=== PATIENT | female | born 1990 | race Caucasian/White ===

== ENCOUNTER 2017-07-11 05:43 | Emergency (ER) | payer OTHER ==
[~2017-07-11] VITALS: Ht 160 cm; Wt 55.0 kg
[2017-07-11 05:53] VITALS: BP 133/85; PULSE 112; RESP 18; TEMP 98.7; O2SAT 96
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
[2017-07-11] MEDS ORDERED: TETANUS/DIPHTHERIA TOXOID ADULT 0.5 ML VIAL IM ONE (06:15)
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
[2017-07-11] MEDS ORDERED: IBUP-232 PO (07:09)
[2017-07-11] MEDS ORDERED: TRAM50TA PO (07:09)
== END 2017-07-11 07:49 ==
LOC: NEPC 05:43
DX: S62.112A Displaced fracture of triquetrum [cuneiform] bone, left wrist, initial encounter for closed fracture (principal); S62.002A Unspecified fracture of navicular [scaphoid] bone of left wrist, initial encounter for closed fracture; S70.311A Abrasion, right thigh, initial encounter; V49.40XA Driver injured in collision with unspecified motor vehicles in traffic accident, initial encounter; Z23 Encounter for immunization; Z86.19 Personal history of other infectious and parasitic diseases; Z87.442 Personal history of urinary calculi; Z72.0 Tobacco use
CPT/HCPCS: 73110; 73130; 84703; 90471; 90714